=== PATIENT | female | born 1985 | race Caucasian/White ===

== ENCOUNTER 2017-11-05 17:51 | Inpatient (IN) | payer MEDICAID ==
[~2017-11-05] VITALS: Ht 180.3 cm; Wt 113.0 kg
[2017-11-05 18:04] VITALS: Ht 180.3 cm; Wt 113.0 kg
[2017-11-05 19:19] LABS: AMPHETAMINE QUAL UR NONE DETECTED (See below)
[2017-11-05] MEDS ORDERED: PROZ20 PO (22:34)
[2017-11-05] MEDS ORDERED: ATIVAN0.5 M1 PO (22:34)
[2017-11-05] MEDS ORDERED: TRILEPTAL300 MG PO (22:34)
[2017-11-05] MEDS ORDERED: HYDRALAZINE HCL25 MG PO (22:35)
[2017-11-05] MEDS ORDERED: ADV250/50 INH (22:35)
[2017-11-05 22:46] LABS: BASOPHIL % 0.9 % (0-2); PLATELET COUNT 321 x10^3mcL (130-400); RED CELL DISTRIBUTION WIDTH 14.3 % (11.5-14.5)
[2017-11-05 23:04] LABS: CALCIUM 8.4 mg/dL (8.5-10.1); CARBON DIOXIDE 26.9 mmol/L (21-32); CHLORIDE SERUM 105 mmol/L (98-107); CREATININE SERUM 0.7 mg/dL (0.6-1.0); GFR1 > 60 mL/min; GLUCOSE SERUM 96 mg/dL (74-106); POTASSIUM SERUM 4.1 mmol/L (3.5-5.1); SODIUM SERUM 139 mmol/L (136-145)
[2017-11-05 23:19] LABS: ALKALINE PHOSPHATASE 83 U/L (46-116); ALT/SGPT 21 U/L (14-59); AST/SGOT 11 U/L (15-37); BILIRUBIN TOTAL 0.19 mg/dL (0.20-1.00); TOTAL PROTEIN, SERUM 6.4 g/dL (6.4-8.2)
[2017-11-05 23:20] LABS: ALBUMIN 3.2 g/dL (3.4-5.0)
[2017-11-05 23:24] LABS: UA SPECIFIC GRAVITY 1.015 (1.005-1.035); microscopic required? YES; urine erythrocyte NEGATIVE (NEGATIVE)
[2017-11-05 23:30] VITALS: BP 130/79
[2017-11-05 23:37] VITALS: BP 130/79
[2017-11-05 23:40] LABS: FREE T4 0.8 ng/dL (0.76-1.46); FREE THYROXINE INDEX 1.9 ug/dL (1.4-4.5)
[2017-11-05 23:42] LABS: MAGNESIUM 1.9 mg/dL (1.8-2.4); PHOSPHOROUS 4.7 mg/dL (2.5-4.9)
[2017-11-05 23:48] LABS: CHOLESTEROL/HDL RATIO 2.4
[2017-11-05 23:52] LABS: T3 TOTAL 1.14 ng/mL
[2017-11-06 05:30] VITALS: BP 106/63
[2017-11-06 17:29] VITALS: BP 114/66
[2017-11-07 08:13] VITALS: BP 114/66
== END 2017-11-07 10:10 | disposition home or self-care (01) | DRG 254 ==
LOC: ED 17:51 → MU 21:51
PROVIDERS: Emergency Medicine; Internal Medicine; Internal Medicine Gastroenterology
PROC: 0DC68ZZ Extirpation of Matter from Stomach, Via Natural or Artificial Opening Endoscopic (ICD-10-PCS; principal; 2017-11-06 11:30)
PROC: 0DB68ZX Excision of Stomach, Via Natural or Artificial Opening Endoscopic, Diagnostic (ICD-10-PCS; 2017-11-06 11:30)
DX: T18.2XXA Foreign body in stomach, initial encounter (principal); E03.9 Hypothyroidism, unspecified; R45.1 Restlessness and agitation; F31.9 Bipolar disorder, unspecified; F15.10 Other stimulant abuse, uncomplicated; J44.9 Chronic obstructive pulmonary disease, unspecified; J45.909 Unspecified asthma, uncomplicated; Z68.34 Body mass index [BMI] 34.0-34.9, adult; Y92.009 Unspecified place in unspecified non-institutional (private) residence as the place of occurrence of the external cause
CPT/HCPCS: 43235; 83880; 84439; G0480; J1610; J2060; J2270; J2405; J2704; J3010; J3490; J7120; Q0092